=== PATIENT | male | born 1940 | race Caucasian/White ===

== ENCOUNTER → 2016-11-23 | Outpatient (CLI) | payer OTHER ==
--- NOTE | 2016-11-23 17:48 | DX ---
PA and lateral chest. November 23, 2016. Clinical History: Cough x3 weeks Comparison Study: June 14, 2012. Findings: No focal infiltrate or pleural effusion. Heart size is normal. An osteophyte or calcified lung nodule overlies the lower thoracic spine on the lateral radiograph, u nchanged. Multiple healed posterior upper left rib fractures are stable.. Impression: Stable negative chest.
== END ==
LOC: CIMAGING 16:47
PROVIDERS: ATTEND Family Medicine
DX: R05 Cough (principal)
CPT/HCPCS: 71020-PO

== ENCOUNTER 2017-06-24 13:26 | Inpatient (IN) | payer OTHER ==
[2017-06-24] MEDS ORDERED: ASPIRIN 81 MG CHEWABLE TAB PO ONE (13:29)
--- NOTE | 2017-06-24 13:36 | CPEKG ---
Heart Rate: 63 RR Interval: 952 P-R Interval: 188 QRSD Interval: 134 QT Interval: 416 QTC Interval: 426 P [place]: 17 QRS [place]: 8 T Wave [place]: 154 EKG Severity - ABNORMAL ECG - EKG Impression: SINUS RHYTHM EKG Impression: LEFT BUNDLE BRANCH BLOCK EKG Impression: LBBB PATTERN IS NEW IN COMPARISON TO PRIOR ECG Electronically Signed By: Vipin Gayle 27-Jun-2017 16:27:28
[2017-06-24 13:50] LABS: % IMMATURE GRANULYOCYTES 0.5 % (0.0-1.1); ABSOLUTE IMMATURE GRANULOCYTES 0.05 10^3/uL (0.00-0.10); ADD DIFF? NO; ADD MORPH? NO; ADD SCAN? NO; ATYPICAL LYMPHOCYTE FLAG 0 (0-99); FRAGMENT RBC FLAG 0 (0-99); HEMATOCRIT 46.7 % (40.0-51.0); LEFT SHIFT FLG 0 (0-99); LIPEMIA HEMOLYSIS FLAG 90 (0-99); MEAN CELL HEMOGLOBIN 31.7 pg (27.9-34.1); MEAN CELL HEMOGLOBIN CONCENTR. 34.3 g/dL (32.4-36.7); MEAN CELL VOLUME 92.5 fL (81.5-99.8); MEAN PLATELET VOLUME 9.4 fL (8.7-11.7); PLATELET CLUMPS FLAG 0 (0-99); PLATELET COUNT 141 10^3/uL (150-400); RED BLOOD CELL COUNT 5.05 10^6/uL (4.40-6.38); RED CELL DISTRIBUTION WIDTH 14.8 % (11.5-15.2)
--- NOTE | 2017-06-24 13:52 | EDPHY ---
H & P Time Seen by Provider: 06/24/17 13:29 HPI/ROS: HPI Chest pains with cough. 76-year-old male comes from the office of his primary care physician, Dr. Brewer, he is accompanied by his , he complains of lower anterior chest pain which he describes more as across his upper abdomen and epigastric area x3 days associated with cough and sneezing only. He describes it as sharp. He states that it is only present when he coughs or sneezes and then goes away. He denies any chest pain at this time. He has no shortness of breath. He reports that he has had a chronic cough since being put on an TAWANA-inhibitor for his blood pressure by his primary care physician. Cough is described as dry and nonproductive. ROS: Constitutional: No fever, no chills. No weakness. Eyes: No discharge. No changes in vision. ENT: No sore throat. No nasal congestion or rhinorrhea. Respiratory: As above. No shortness of breath. Cardiac: As above, no palpitations. Gastrointestinal: No abdominal pain, no vomiting, no diarrhea. Genitourinary: No hematuria. No dysuria or increased frequency with urination. Musculoskeletal: No back pain. No neck pain. No myalgias or arthralgias. Skin: No rashes. Neurological: No headache. No focal weakness or altered sensation. Past medical history: Hypertension, hyperlipidemia, prostatectomy, angioplasty about 20 years ago without stent placement. Current primary care physician is Dr. Brewer. Social history: Former smoker. No alcohol. Here with his . Physical Exam: General Appearance: Alert, no distress. Moderately obese. This patient is responding to questions appropriately and in full sentences. This patient appears well-hydrated and well-nourished. Eyes: Pupils equal and round no pallor or injection. No lid edema, erythema or injection. Respiratory: There are no retractions, lungs are clear to auscultation with good air movement bilaterally. Cardiovascular: Regular rate and rhythm. No murmur appreciated. Gastrointestinal: Abdomen is soft and nontender on deep palpation throughout, no masses, bowel sounds normal. No focal tenderness at McBurney's point. No Rock sign. Neurological: Motor sensory function is grossly intact. Cranial nerves are normal. Gait is normal. Skin: Warm and dry, no rashes. Musculoskeletal: Neck is supple and nontender. Extremities are symmetrical. 1+ symmetrical pitting edema distal lower extremities. All joints range without pain or impingement. Psychiatric: No agitation. No depression. Database: EKG: EKG time is 1:34 p.m.; EKG shows a sinus rhythm with left bundle branch block and appropriate discordance. Ventricular rate of 63. Interpreted by me. Imaging: Chest x-ray AP portable; poor inspiration, the cardiac mediastinal silhouette is unremarkable. No evidence of infiltrate or pneumothorax. No acute cardiopulmonary disease process noted. Interpreted by me. Procedures: Emergency department course: An IV was placed. His vital signs were reviewed. He is afebrile. Vital signs otherwise normal. 92% pulse oximetry on room air. He was given 324 mg of chewed aspirin from triage. EKG and chest x-ray performed. This patient's presentation and is not consistent with acute coronary syndrome. Pain only present with sneezing and coughing. Described as sharp and lasting seconds. No associated shortness of breath. 2:15 p.m., patient re-evaluated. Resting comfortably at this time. No chest pain. D-dimer elevated. Discussed CT imaging to evaluate for pulmonary embolism. Patient consents. Prior records obtained from [facility]. He had a myocardial perfusion study in November of 2013. This was interpreted as a normal myocardial perfusion imaging study. The report also makes mention that his baseline EKG shows nonspecific ST changes only but does not mention a left bundle branch block. EKG report obtained from [facility] dated 11/29/2013 interpreted as normal sinus rhythm. No mention of a left bundle branch block. 2:50 p.m., patient re-evaluated. No chest pain at this time. Results of blood work, chest x-ray discussed. I discussed disposition. Plan will be to admit the patient to the hospitalist service, telemetry for further testing and observation overnight. Hospitalist paged. 3:00 p.m., patient informed of results of CT angiogram and diagnosis of pulmonary embolism. He will be given 1 milligram/kilogram of subcutaneous enoxaparin. 3:10 p.m., discussed case with on-call hospitalist Dr. Medina. She accepts the patient for admission. The patient has been very stable throughout his emergency department course. He will go by private vehicle with his to the [facility]. Differential Diagnosis: The differential diagnosis on this patient includes but is not limited to pleuritis, costal chondritis, diaphragmatic spasm. Acute coronary syndrome or pulmonary embolism, aortic dissection, myocardial infarction unlikely. This represents a partial list of diagnoses considered. These considerations are based on history, physical exam, past history, reassessment and diagnostic testing. Smoking Status: Former smoker Constitutional: Initial Vital Signs Temperature (C) 37 C 06/24/17 13:26 Heart Rate 63 06/24/17 13:26 Respiratory Rate 20 06/24/17 13:26 Blood Pressure 129/73 H 06/24/17 13:26 O2 Sat (%) 92 06/24/17 13:26 O2 Delivery Mode Nasal Cannula O2 (L/minute) 2 Allergies/Adverse Reactions: No Known Allergies Allergy (Verified 06/24/17 17:50) Home Medications: Medication Instructions Recorded Aspirin [Aspirin 81mg (*)] 81 mg PO DAILY 06/24/17 Bisoprol/Hydrochlorothiazide 1 each PO DAILY 06/24/17 [Bisoprolol-Hctz 2.5-6.25 mg Tb] Cholecalciferol Vit D3 [Vitamin D3 4,000 units PO DAILY 06/24/17 (*)] Cyanocobalamin [Vitamin B12 (*)] 1,000 mcg PO DAILY 06/24/17 Lisinopril [Zestril 40 mg (*)] 40 mg PO DAILY 06/24/17 Simvastatin [Zocor] 80 mg PO DAILY18 06/24/17 Vit A/Vit C/Vit E/Zinc/Copper 1 each PO DAILY 06/24/17 [Preservision Areds Softgel] Medical Decision Making - Data Points Laboratory Results: Laboratory Results 06/25/17 03:40 06/25/17 03:40 Medications Given: Aspirin (Aspirin) 81 mg PO DAILY [facility] Stop: 12/22/17 08:59 Last Admin: 06/25/17 11:08 Dose: 81 mg Atorvastatin Calcium (Lipitor) 40 mg PO DAILY18 [facility] Stop: 12/21/17 18:14 Last Admin: 06/25/17 17:47 Dose: 40 mg Bisoprolol Fumarate/HCTZ (Ziac 2.5/6.25) 1 each PO DAILY [facility] Stop: 12/22/17 08:59 Last Admin: 06/25/17 11:08 Dose: 1 each Enoxaparin Sodium (Lovenox) 100 mg SC Q12H [facility] Stop: 12/22/17 05:59 Last Admin: 06/26/17 05:33 Dose: 100 mg Lisinopril (Zestril) 40 mg PO DAILY [facility] Stop: 12/22/17 08:59 Last Admin: 06/25/17 11:08 Dose: 40 mg Vitamin B Complex (Vitamin B12) 1,000 mcg PO DAILY [facility] Stop: 12/22/17 08:59 Last Admin: 06/25/17 11:09 Dose: 1,000 mcg Discontinued Medications Aspirin (Aspirin) 324 mg PO EDNOW ONE Stop: 06/24/17 13:30 Last Admin: 06/24/17 13:30 Dose: 324 mg Enoxaparin Sodium (Lovenox) 100 mg SC EDNOW ONE Stop: 06/24/17 15:11 Last Admin: 06/24/17 15:23 Dose: 100 mg Departure - Departure Disposition: [facility] Clinical Impression: Epigastric pain, Pulmonary embolism, Chest pain, Left bundle branch block (LBBB )
[2017-06-24 14:01] LABS: INR 1.06 (0.83-1.16); PROTIME(PATIENT) 13.5 SEC (12.0-15.0)
[2017-06-24 14:02] LABS: APTT 29.1 SEC (23.0-38.0)
[2017-06-24 14:06] LABS: ALANINE AMINOTRANSFERASE 34 IU/L (21-72); ALBUMIN 3.9 g/dL (3.5-5.0); ALKALINE PHOSPHATASE 64 IU/L (38-126); ANION GAP 12 mEq/L (8-16); ASPARTATE AMINOTRANSFERASE 26 IU/L (17-59); BILIRUBIN,TOTAL 1.3 mg/dL (0.1-1.4); BILIRUBIN-CONJUGATED 0.4 mg/dL (0.0-0.5); BILIRUBIN-UNCONJUGATED 0.9 mg/dL (0.0-1.1); CARBON DIOXIDE 23 mEq/l (22-31); CHLORIDE 101 mEq/L (97-110); GLOMERULAR FILTRATION RATE > 60; GLUCOSE 89 mg/dL (70-100); POTASSIUM 4.3 mEq/L (3.5-5.2); SODIUM 136 mEq/L (134-144)
[2017-06-24 14:17] LABS: CREATINE KINASE-MB FRACTION 1.08 ng/mL (0.00-4.55); TROPONIN I < 0.012 ng/mL (0.000-0.034)
[2017-06-24] MEDS ORDERED: IOPAMIDOL (ISOVUE 370) 100 ML BTL IV ONE (14:25)
[2017-06-24] MEDS ORDERED: ENOXAPARIN 100 MG/ML SYR SC ONE (15:10)
[2017-06-24] MEDS ORDERED: oxyCODONE IR 5 MG TAB PO PRN (17:49)
[2017-06-24] MEDS ORDERED: HYDROmorphONE/DILAUDID 1 MG/ML SYR IVP PRN (17:49)
[2017-06-24] MEDS ORDERED: ONDANSETRON 4 MG/2 ML VIAL IVP PRN (17:49)
[2017-06-24] MEDS ORDERED: KETOROLAC 30 MG/1 ML SDV IVP PRN (17:49)
[2017-06-24] MEDS ORDERED: ACETAMINOPHEN 325 MG TAB PO PRN (17:49)
--- NOTE | 2017-06-24 18:36 | GHP ---
[f rep st] HISTORY AND PHYSICAL DATE OF ADMISSION: 06/24/2017 CHIEF COMPLAINT: Chest pain. HISTORY: Bebeto is a 76-year-old male who complains of bilateral lower chest pain. It is mostly pleuritic with deep inspiration. It started about 1 week ago and was not going away, so at his 's insistence, he did seek emergency room care. He denies any lower extremity edema. He denies any recent travel or prolonged immobility. He denies any chest pain with exertion. There is no shortness of breath. PAST MEDICAL HISTORY: 1. Coronary artery disease, status post balloon angioplasty in 1997. In 2011, he had a positive stress test which led to a cardiac catheterization performed by Dr. Gatito Harrington. He was found to have a chronic right coronary artery occlusion with collaterals and no further intervention was performed. 2. Prostate cancer, status post radical prostatectomy. MEDICATIONS: Please see computer record for full detailed list. ALLERGIES: No known drug allergies. SOCIAL HISTORY: Quit smoking 40 years ago. Drinks a couple of glasses of wine per day. Lives with his . REVIEW OF SYSTEMS: Complete review of systems obtained. Review of systems negative for constitutional, HEENT, GI, pulmonary, cardiovascular, , hematology, skin, musculoskeletal, endocrine, and psych except for positives and negatives as in HPI. FAMILY HISTORY: Reviewed, noncontributory to current complaint. PHYSICAL EXAMINATION: GENERAL: Well-developed, well-nourished male in no acute distress. VITAL SIGNS: Temperature is 37.0, pulse 63, blood pressure 129 /73, saturating 92% on room air. EYES: Normal conjunctivae. Pupils equal and react to light. ENT: Normal ears, nose. Hearing intact. Normal teeth. Oropharynx moist. NECK: Trachea midline. No thyromegaly. CHEST: Normal respiratory effort. LUNGS: Clear to auscultation bilaterally. CARDIOVASCULAR : Regular rate and rhythm. No murmur. No lower extremity edema. ABDOMEN: Soft, nontender. No hepatosplenomegaly. SKIN: Warm, dry, and intact without rash. MUSCULOSKELETAL: No cyanosis or clubbing. Strength 5/5 upper and lower extremities. NEUROLOGIC: Cranial nerves are intact. Normal sensation to light touch. PSYCH: Alert and orient x3. Normal mood and affect. Normal judgment and insight. Normal memory. LABORATORY DATA: White count 10.65, hematocrit 46.7, platelets 141, sodium 136 , potassium 4.3, chloride 101, bicarb 23, BUN 23, creatinine 1.0, glucose 89. LFTs are negative. D-dimer is 1.83. Troponins are negative. EKG reviewed by me and my personal interpretation is sinus rhythm with left bundle branch block. I spoke had spoke with in the emergency room. He reviewed the medical record in depth all the way back and determined that this left bundle branch block is new and not present on previous EKGs. CT scan of the chest shows a right lower lobe pulmonary embolus with infarct. There is also evidence of extensive coronary artery disease. ASSESSMENT/PLAN: 1. Acute pulmonary embolus with pulmonary infarct. He has been started on subcutaneous Lovenox at 100 mg p.o. b.i.d., which I will continue. He can likely be changed to an oral agent at discharge. 2. New left bundle branch block. I do suspect his chest pain is more likely related to pulmonary embolus than coronary ischemia, but I do think this new left bundle does warrant further workup. I will check an echocardiogram, serial troponins, and order a Lexiscan stress test for the morning. 3. Coronary artery disease. He has a known chronic right coronary artery occlusion with collateralization with last catheterization and stress test in 2011. We will continue his aspirin, beta-nirmal, and statin. 4. Prostate cancer status post radical prostatectomy. This is stable. 5. Obesity. BMI 33. Weight loss should be advised. CODE STATUS: Full. ADMISSION STATUS: Will admit to observation. May be able go home tomorrow if workup is negative. DVT PROPHYLAXIS: He is high risk but getting full anticoagulation as discussed above. /[id number]/MODL MTDD
[2017-06-24] MEDS: ATORVASTATIN CALCIUM 40 MG TAB PO SCH (22:11)
[2017-06-25] MEDS ORDERED: ENOXAPARIN 100 MG/ML SYR SC SCH (03:00)
[2017-06-25 04:08] LABS: % IMMATURE GRANULYOCYTES 0.3 % (0.0-1.1); ABSOLUTE IMMATURE GRANULOCYTES 0.02 10^3/uL (0.00-0.10); ADD DIFF? NO; ADD MORPH? NO; ADD SCAN? NO; ATYPICAL LYMPHOCYTE FLAG 0 (0-99); FRAGMENT RBC FLAG 0 (0-99); HEMATOCRIT 43.2 % (40.0-51.0); HEMOGLOBIN 14.6 g/dL (13.7-17.5); LEFT SHIFT FLG 0 (0-99); LIPEMIA HEMOLYSIS FLAG 90 (0-99); MEAN CELL HEMOGLOBIN 31.7 pg (27.9-34.1); MEAN CELL HEMOGLOBIN CONCENTR. 33.8 g/dL (32.4-36.7); MEAN CELL VOLUME 93.7 fL (81.5-99.8); MEAN PLATELET VOLUME 9.5 fL (8.7-11.7); PLATELET CLUMPS FLAG 0 (0-99); PLATELET COUNT 116 10^3/uL (150-400); RED BLOOD CELL COUNT 4.61 10^6/uL (4.40-6.38); RED CELL DISTRIBUTION WIDTH 14.6 % (11.5-15.2)
[2017-06-25 04:26] LABS: ANION GAP 9 mEq/L (8-16); CALCIUM 8.9 mg/dL (8.5-10.4); CARBON DIOXIDE 22 mEq/l (22-31); CHLORIDE 102 mEq/L (97-110); CHOLESTEROL 126 mg/dL (140-220); GLOMERULAR FILTRATION RATE > 60; GLUCOSE 102 mg/dL (70-100); HIGH DENSITY LIPOPROTEIN 42 mg/dL (40-65); LDL/HDL RATIO 1.57 RATIO (1.00-3.64); LOW DENSITY LIPOPROTEIN 66 mg/dL (80-100); NON-HIGH DENSITY LIPOPROTEIN 84 mg/dL (90-129); POTASSIUM 4.3 mEq/L (3.5-5.2); SODIUM 133 mEq/L (134-144); TRIGLYCERIDE 94 mg/dL (40-150); VERY LOW DENSITY LIPOPROTEINS 18 mg/dL (8-25)
[2017-06-25] MEDS: ENOXAPARIN 100 MG/ML SYR SC SCH ×2 (06:49→17:47)
[2017-06-25] MEDS ORDERED: REGADENOSON 0.4 MG/5 ML SYR IVP ONE (09:35)
[2017-06-25] MEDS: LISINOPRIL 40 MG TAB PO SCH (11:08)
[2017-06-25] MEDS: ASPIRIN 81 MG CHEWABLE TAB PO SCH (11:08)
[2017-06-25] MEDS: BISOPROLOL/HCTZ 2.5/6.25MG 1 EACH TAB PO SCH (11:08)
[2017-06-25] MEDS: CYANO/VITAMIN B12 1000 MCG TAB PO SCH (11:09)
--- NOTE | 2017-06-25 12:53 | CPR ---
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 PRE: After obtaining informed consent, ensuring patient's n.p.o. status of caffeine for greater kanu n 12 hours, patient was placed on electrocardiogram. Initial EKG shows sinus rhythm with left bundl e branch block. Initial blood pressure 130/77, saturation 97% on 2 L nasal cannula. Patient denies any chest pain or pressure. INJECTION: Patient given Lexiscan slow IV push, followed by nuclear isotope. Patient remained asym ptomatic post injection, did note mildly elevated increasing heart rate up to 66 beats per minute. No significant EKG changes. Blood pressure did drop down to 109/69 within 2 minutes of injection, b ut within 5 minutes returned back up to 117/66. Vital signs remained stable and no significant EKG changes. IMPRESSION: A 76-year-old male with left bundle branch block, admitted to hospital with chest press ure and pain, being evaluated for cardiac ischemia. Tolerated Lexiscan myocardial perfusion imaging injection with no symptoms and no significant EKG changes. Myocardial perfusion imaging stress antonio ging pending Nuclear Medicine. Vital signs stable. /[id number]/MODL
--- NOTE | 2017-06-25 13:05 | ECHO ---
[id number] + + [address] : : [place] [address] : : [phone] + Adult Echocardiographic Report + -------+ :Name: EMORY TRUJILLO LStudy Date: 06/25/2017 12:04 PM : : Hospital Admission Number: [id number] Locati on: 217: :: 1940 Gender: Male Height: 71 in : :Age: 76 yrs Race: WH Weight: 236 lb : :Reason For Study: New LBBB : : BSA: 2.3 meter s2 : :History: No previous : + -------+ MMode/2D Measurements \T\ Calculations IVSd: 1.3 cm LVIDd: 4.5 cm FS: 28.7 % LVOT diam: 2.0 cm LVPWd: 1.2 cm LVIDs: 3.2 cm EDV(Teich): 92.0 ml LVOT area: 3.3 cm2 ESV(Teich): 41.0 ml EF(Teich): 55.5 % Normal Measurement Values: + + :LVIDd (3.5-5.7cm) IVSd (0.6-1.1cm) LVPWd (0.6-1.1cm) Aortic Root (2.0-3.7cm)Left Atrium (1.5-4.0cm): :LV Vol(d) (76-115ml) LV Vol(s) (29-48ml) Ejec Fraction (50-65%)PV Dixon (0.6- 1.2m/s) TV Dixon (0.4-1.0m/s) : :MV E Dixon (0.8-1.0m/s)MV A Dixon (0.3-1.0m/s)LVOT Dixon (0.7-1.2m/s) Asc Ao Dixon ( 0.9-1.8m/s) : + + Doppler Measurements \T\ Calculations MV E max dixon: Ao mean P.8 mmHg LV V1 max: SV(LVOT): 40.5 cm/sec Ao V2 mean: 95.0 cm/sec 81.9 ml MV A max dixon: 79.6 cm/sec LV V1 max P.2 cm/sec Ao V2 VTI: 23.8 cm 3.6 mmHg MV E/A: 0.60 ABBIE(I,D): 3.4 cm2 LV V1 mean PG: MV dec time: 0.32 sec 1.8 mmHg LV V1 mean: 62.2 cm/sec LV V1 VTI: 25.2 cm PA V2 max: TR max dixon: 97.7 cm/sec 225.9 cm/sec PA max P.8 mmHg TR max P.4 mmHg RAP systole: 10.0 mmHg RVSP(TR): 30.4 mmHg Left Ventricle The left ventricle is normal in size and function. There is mild concentric left ventricular hypertrophy. Ejection Fraction = 55%. There is Doppler evidence for diastolic dysfunction. Septal motion is consistent with conduction abnormality. Right Ventricle The right ventricle is normal in size and function. Atria The left atrial size is normal. Right atrial size is normal. Mitral Valve The mitral valve is normal in structure and function. There is no mitral valve stenosis. There is trace to mild mitral regurgitation. Tricuspid Valve The tricuspid valve is normal in structure and function. There is no tricuspid stenosis. There is mild tricuspid regurgitation. Right ventricular systolic pressure is 30mmHg. Aortic Valve The aortic valve is normal in structure and function. There is mild aortic valve calcification. There is no aortic stenosis. There is no aortic insufficiency. Pulmonic Valve The pulmonic valve is not well visualized. There is no pulmonic valvular regurgitation. Great Vessels The aortic root is normal size. Pericardium/Pleural There is a fat pad seen. There is no pericardial effusion. Conclusion A complete two-dimensional transthoracic echocardiogram was performed (2D, M-mode, Doppler and color flow Doppler). The left ventricle is normal in size and function. There is mild concentric left ventricular hypertrophy. Ejection Fraction = 55%. There is Doppler evidence for diastolic dysfunction. Septal motion is consistent with conduction abnormality. There is trace to mild mitral regurgitation. There is mild tricuspid regurgitation. Right ventricular systolic pressure is 30mmHg. The aortic valve is normal in structure and function. There is mild aortic valve calcification. No prior echo Final Reading Physician: Dr María Santamaria electronically signed on 06/25/2017 01:04 PM Ordering Physician: Shannan Medina Performed By: Mary Lua
--- NOTE | 2017-06-25 14:56 | HOSPPROG ---
Hospitalist Progress Note Assessment/Plan: Acute PE: may have been provoked with train ride in May to [place] and back. No e/o right heart strain. Lovenox while here. Explained warfarin and novel agents -h/o prostate cancer s/p prostatectomy. Polyps on prior scopes; has repeat in next 6 months #Atypical chest pain: due to above. Can trial Toradol. #CAD: h/o PCI. New LBBB, trops negative. No WMA on echo. Hypoperfusion at apex on stress. Rest imaging tomorrow. ASA, statin #Diet: cardiac #DVT ppx: lovenox #Disp: warrants inpt admission with concern for ischemia, further imaging tomorrow. Cont telemetry Objective: Vital Signs Temp Pulse Resp BP Pulse Ox 36.8 C 62 20 135/75 H 96 06/25/17 11:20 06/25/17 11:20 06/25/17 11:20 06/25/17 11:20 06/25/17 11:20 Laboratory Results 06/25/17 03:40 06/25/17 03:40 06/24/17 06/25/17 06/26/17 05:59 05:59 05:59 Intake Total 400 Balance 400 PT 13.5 SEC (12.0-15.0) 06/24/17 13:48 INR 1.06 (0.83-1.16) 06/24/17 13:48 - Physical Exam Constitutional: no apparent distress Eyes: PERRL Ears, Nose, Mouth, Throat: moist mucous membranes Cardiovascular: regular rate and rhythym, no murmur, rub, or gallop, No edema Respiratory: no respiratory distress, no rales or rhonchi Gastrointestinal: normoactive bowel sounds, soft, non-tender abdomen Genitourinary: no bladder fullness Skin: warm Musculoskeletal: full muscle strength Neurologic: AAOx3, CN II-XII Intact Psychiatric: interacting appropriately ICD10 Worksheet Patient Problems: Problems Problem Status Onset Chest pain Acute Epigastric pain Acute Pulmonary embolism Acute
[2017-06-25] MEDS: ATORVASTATIN CALCIUM 40 MG TAB PO SCH (17:47)
[2017-06-25] MEDS ORDERED: NON-FORMULARY NEW DRUG (Simvastatin [Zocor] 80 MG) PO SCH (18:00)
[2017-06-26] MEDS: ENOXAPARIN 100 MG/ML SYR SC SCH (05:33)
[2017-06-26] MEDS: CYANO/VITAMIN B12 1000 MCG TAB PO SCH (08:32)
[2017-06-26] MEDS: BISOPROLOL/HCTZ 2.5/6.25MG 1 EACH TAB PO SCH (08:32)
[2017-06-26] MEDS: LISINOPRIL 40 MG TAB PO SCH (08:32)
[2017-06-26] MEDS: ASPIRIN 81 MG CHEWABLE TAB PO SCH (08:32)
[2017-06-26 11:13] VITALS: BP 96/57; PULSE 55; RESP 18; TEMP 98.6; O2SAT 92
--- NOTE | 2017-06-26 14:30 | HOSPPROG ---
Hospitalist Progress Note Assessment/Plan: Acute PE: may have been provoked with train ride in May to [place] and back. No e/o right heart strain. Lovenox while here. Explained warfarin and novel agents. He has chosen Eliquis. I have explained the risk of bleeding with this med and he understands. -h/o prostate cancer s/p prostatectomy. Polyps on prior scopes; has repeat in next 6 months #Atypical chest pain: due to above. APAP while on Eliquis #CAD: h/o PCI. New LBBB, trops negative. No WMA on echo. Hypoperfusion at apex on stress. Rest imaging pending #Diet: cardiac #DVT ppx: lovenox #Disp: pending stress results Subjective: no dizziness. Some bandlike CP with inspiration Objective: Vital Signs Temp Pulse Resp BP Pulse Ox 37.0 C 55 L 18 96/57 L 92 06/26/17 11:12 06/26/17 11:12 06/26/17 11:12 06/26/17 11:12 06/26/17 11:12 06/25/17 06/26/17 06/27/17 05:59 05:59 05:59 Intake Total 700 500 Balance 700 500 PT 13.5 SEC (12.0-15.0) 06/24/17 13:48 INR 1.06 (0.83-1.16) 06/24/17 13:48 - Physical Exam Constitutional: no apparent distress Eyes: PERRL Ears, Nose, Mouth, Throat: moist mucous membranes, hearing normal Cardiovascular: regular rate and rhythym, no murmur, rub, or gallop, No edema Respiratory: no respiratory distress, no rales or rhonchi Gastrointestinal: normoactive bowel sounds, soft, non-tender abdomen Genitourinary: no bladder fullness Skin: warm Musculoskeletal: full muscle strength Neurologic: AAOx3, CN II-XII Intact Psychiatric: interacting appropriately ICD10 Worksheet Patient Problems: Problems Problem Status Onset Chest pain Acute Epigastric pain Acute Left bundle branch block (LBBB) Acute Pulmonary embolism Acute
--- NOTE | 2017-06-26 15:17 | GDS ---
[f rep st] DISCHARGE SUMMARY DISCHARGE DIAGNOSES: 1. Acute pulmonary embolism, likely provoked. 2. Pleuritic chest pain. 3. Coronary artery disease. 4. New left bundle branch block. 5. Mild hypertension. HISTORY OF PRESENT ILLNESS: A 76-year-old male with history of coronary artery disease, status post angioplasty in 1997, presenting with bilateral lower chest pain. It is pleuritic in nature, worse with deep inspiration. It started a week ago and has not gone away, thus, his insisted that he seek emergency care. Denies lower extremity edema, PND, or orthopnea. He did go on a train ride w ith his family to [place] and back. Has a history of prior prostate cancer. HOSPITAL COURSE BY PROBLEM: 1. Acute chest pain: Differential includes acute coronary syndrome versus pulmonary embolism versu s musculoskeletal. CTA showed an acute pulmonary embolus. He was started on Lovenox here and has o pted for Eliquis at discharge. 2. New left bundle branch block: Pain is pleuritic in nature, thus, more likely related to pulmona ry embolus, but given new block and history of coronary artery disease, further evaluation was compl eted. Echocardiogram showed trace mitral regurgitation and RVSP of 30 mmHg. Nuclear stress test di d not show any evidence of myocardial ischemia. Patient may take Tylenol for his chest pain. I wou ld avoid nonsteroidal antiinflammatory drugs given anticoagulation. 3. Mild hypotension: There is no evidence of right heart strain on echocardiogram. Patient is on multiple blood pressure medications, which may be too high given his age. I will have him follow up with his primary care physician, and hold these medications until that time. 4. Coronary artery disease. Again, no evidence of ischemia. Continue aspirin, beta nirmal, and s tatin. DISPOSITION: Patient is stable for discharge home with his . DISCHARGE MEDICATIONS: New medication: Eliquis. FOLLOWUP: With his primary care physician for blood pressure check, as well as routine cancer wilder zheng. /[id number]/MODL
== END 2017-06-26 15:31 | disposition home or self-care (01) | DRG 176 ==
LOC: CED 13:26 → CEDHOLD 15:14 → F2W 17:02 → OBSVTOIN 06-25 14:50
PROVIDERS: ADMIT Internal Medicine; ATTEND Internal Medicine
DX: I26.99 Other pulmonary embolism without acute cor pulmonale (principal); I25.10 Atherosclerotic heart disease of native coronary artery without angina pectoris; I10 Essential (primary) hypertension; I44.7 Left bundle-branch block, unspecified; I95.9 Hypotension, unspecified; E78.5 Hyperlipidemia, unspecified; E66.9 Obesity, unspecified; Z85.46 Personal history of malignant neoplasm of prostate; Z68.33 Body mass index [BMI] 33.0-33.9, adult; Z87.891 Personal history of nicotine dependence
CPT/HCPCS: 71010-PO; 71275-PO; 80048-PO; 80076-PO; 82550-PO; 82553-PO; 83690-PO; 83880-PO; 84484-PO; 85025-PO; 85378-PO; 85610-PO; 85730-PO; A9500; G0378; J1650; J2785; Q9967